=== PATIENT | female | born 1990 | race African-American/Black ===

== ENCOUNTER 2022-09-15 11:32 | Emergency (ER) | payer MEDICAID, OTHER ==
[~2022-09-15] VITALS: Ht 177.8 cm; Wt 80.0 kg
[2022-09-15 13:19] LABS: BASOPHILS % 1.5 % (0.0-2.0); EOSINOPHILS % 5.4 % (0.0-5.0); HEMATOCRIT. 32.8 % (36.0-48.0); HEMOGLOBIN. 10.9 g/dL (12.0-16.0); LYMPHOCYTES % 34.8 % (20.0-50.0); MEAN CORPUSCULAR HEMOGLOBIN 29.1 pg (28.0-32.0); MEAN CORPUSCULAR VOLUME 87.5 fL (81.0-99.0); MEAN PLATELET VOLUME 8.1 fl (7.4-10.4); MONOCYTES % 9.4 % (2.0-8.0); NEUTROPHILS % 48.9 % (40.0-76.0); PLATELET 178 x1000/uL (130-400); RED BLOOD CELL COUNT 3.75 mill/uL (4.2-5.4); RED CELL DISTRIBUTION WIDTH 15.7 % (11.6-14.6)
[2022-09-15 13:21] LABS: CHLORIDE 103 mEq/L (98-107)
[2022-09-15 13:35] LABS: HCG SCREEN NEGATIVE
[2022-09-15 14:00] VITALS: BP 119/79
== END 2022-09-15 14:25 | disposition home or self-care (01) ==
LOC: ER 11:32
DX: F10.20 Alcohol dependence, uncomplicated (principal); F12.10 Cannabis abuse, uncomplicated; D64.9 Anemia, unspecified; Y90.9 Presence of alcohol in blood, level not specified
CPT/HCPCS: 36415; 80053; 84703; 85025; 99283

== ENCOUNTER 2023-06-03 19:45 | Inpatient (IN) | payer MEDICAID, OTHER ==
[~2023-06-03] VITALS: Ht 175.3 cm; Wt 74.4 kg
[~2023-06-03 19:45] MED LIST: IBUP-2741 PO; TRAZ-251 PO
[2023-06-03] MEDS ORDERED: SODIUM CHLORIDE 0.9% 1,000 ML IV ONE ×2 (21:45→23:30)
[2023-06-03] MEDS ORDERED: FAMOTIDINE 20MG/2ML VIAL IV ONE (22:00)
[2023-06-03] MEDS ORDERED: ONDANSETRON HCL 4MG/2ML INJ IV ONE (22:00)
[2023-06-03] MEDS ORDERED: LORAZEPAM 2MG/ML INJ IV ONE ×2 (22:00→23:30)
[2023-06-03 22:04] LABS: BASOPHILS % 0.7 % (0.0-2.0); EOSINOPHILS % 0.2 % (0.0-5.0); HEMATOCRIT. 37.9 % (36.0-48.0); HEMOGLOBIN. 12.5 g/dL (12.0-16.0); LYMPHOCYTES % 14.1 % (20.0-50.0); MEAN CORPUSCULAR HEMOGLOBIN 30.1 pg (28.0-32.0); MEAN CORPUSCULAR HGB CONC 32.9 g/dL (31.0-37.0); MEAN CORPUSCULAR VOLUME 91.6 fL (81.0-99.0); MONOCYTES % 7.8 % (2.0-8.0); NEUTROPHILS % 77.2 % (40.0-76.0); PLATELET 158 x1000/uL (130-400); RED BLOOD CELL COUNT 4.14 mill/uL (4.2-5.4); RED CELL DISTRIBUTION WIDTH 14.1 % (11.6-14.6); WHITE BLOOD COUNT 5.3 x1000/uL (4.5-11.0)
[2023-06-03 22:21] LABS: ALANINE AMINOTRANSFERASE 69 IU/L (10-49); ASPARTATE AMINOTRANSFERASE 160 IU/L (<34); BILIRUBIN TOTAL 1.2 mg/dL (0.1-1.0); CALCIUM 9.8 mg/dL (8.7-10.4); CARBON DIOXIDE 24 mEq/L (21-32); CHLORIDE 97 mEq/L (98-107); CREATININE 0.8 mg/dL (0.6-1.0); GLUCOSE 82 mg/dL (70-105); POTASSIUM 4.3 mEq/L (3.5-5.1); SODIUM 138 mEq/L (136-145); UREA NITROGEN BLOOD 8 mg/dL (9-23)
[2023-06-03 22:25] LABS: HCG SCREEN NEGATIVE
[2023-06-03 22:30] LABS: ETHANOL BLOOD < 10 mg/dL (<10)
[2023-06-04 04:17] LABS: *AMPHETAMINES SCREEN URINE NEGATIVE (NEGATIVE); *BARBITURATES SCREEN URINE NEGATIVE (NEGATIVE); *BENZODIAZEPINES SCREEN URINE NEGATIVE (NEGATIVE); *COCAINE SCREEN URINE NEGATIVE (NEGATIVE); CANNABINOID URINE SCREEN PRESUMPTIVE POSITIVE (NEGATIVE); ECSTASY MDMA SCREEN URINE NEGATIVE (NEGATIVE); METHADONE URINE SCREEN Neg (NEGATIVE); OPIATES URINE SCREEN NEGATIVE (NEGATIVE); PHENCYCLIDINE URINE SCREEN NEGATIVE (NEGATIVE)
[2023-06-04 04:48] LABS: CLARITY URINE CLEAR (CLEAR); COLOR URINE YELLOW (YELLOW); GLUCOSE URINE NEGATIVE (NEGATIVE); PROTEIN URINE NEGATIVE (NEGATIVE); SPECIFIC GRAVITY URINE 1.026 (1.005-1.030)
[2023-06-04 04:49] LABS: KETONES URINE 4+ (NEGATIVE); LEUKOCYTE ESTERASE URINE NEGATIVE (NEGATIVE); NITRITE URINE NEGATIVE (NEGATIVE); OCCULT BLOOD URINE NEGATIVE (NEGATIVE)
[2023-06-04 12:00] VITALS: BP 139/82; PULSE 90; RESP 18; TEMP 99.5
[2023-06-04 12:06] VITALS: BP 139/82; PULSE 90; RESP 20; TEMP 99.5
[2023-06-04] MEDS ORDERED: MAGNESIUM/ALUMINUM HYDROXIDE/SIMETHICONE 30ML UDC PO PRN (12:15)
[2023-06-04] MEDS ORDERED: ONDANSETRON HCL 4MG/2ML INJ IV PRN (12:15)
[2023-06-04] MEDS ORDERED: CLONIDINE 0.1MG TABLET PO PRN (12:15)
[2023-06-04] MEDS ORDERED: DOCUSATE SODIUM 100MG CAPSULE PO PRN (12:15)
[2023-06-04] MEDS ORDERED: MVI, ADULT NO.1 10 ML, FOLIC ACID 1 MG, THIAMINE HCL 100 MG in SODIUM CHLORIDE 0.9% 1,0... IV SCH ×4 (13:00)
[2023-06-04] MEDS ORDERED: CHLORDIAZEPOXIDE 25MG CAPSULE PO PRN (13:00)
[2023-06-04] MEDS: PANTOPRAZOLE SODIUM 40 MG/VIAL IV SCH (14:04)
[2023-06-04 16:00] VITALS: BP 142/96; PULSE 93; RESP 15; TEMP 97
[2023-06-04 17:57] LABS: HEPATITIS B SURFACE ANTIGEN NEGATIVE (Negative); HEPATITIS C AB NON REACTIVE (Neg) (Negative)
[2023-06-04 20:00] VITALS: BP 140/100; PULSE 88; RESP 20; TEMP 98.2
[2023-06-05] VITALS: BP_SYST 140; BP_SYST 143; BP_DIAS 100; BP_DIAS 108; PULSE 80; PULSE 88; RESP 20; TEMP 97.7; TEMP 98.2
[2023-06-05] MEDS: LORAZEPAM 1MG TABLET PO PRN ×2 (00:29→13:34)
[2023-06-05 04:00] VITALS: BP 140/98; PULSE 76; RESP 20; TEMP 97.6
[2023-06-05 08:00] VITALS: BP 142/107; PULSE 81; RESP 18; TEMP 97.5
[2023-06-05] MEDS ORDERED: INFLUENZA VACCINE 05/PF 0.5 ML SYRINGE IM ONE (09:00)
[2023-06-05 09:35] LABS: BASOPHILS % 0.4 % (0.0-2.0); HEMATOCRIT. 38.4 % (36.0-48.0); HEMOGLOBIN. 12.3 g/dL (12.0-16.0); LYMPHOCYTES % 28.9 % (20.0-50.0); MEAN CORPUSCULAR HEMOGLOBIN 29.6 pg (28.0-32.0); MEAN CORPUSCULAR HGB CONC 32.1 g/dL (31.0-37.0); MEAN CORPUSCULAR VOLUME 92.5 fL (81.0-99.0); MEAN PLATELET VOLUME 9.8 fl (7.4-10.4); MONOCYTES % 10.8 % (2.0-8.0); NEUTROPHILS % 50.9 % (40.0-76.0); PLATELET 116 x1000/uL (130-400); RED BLOOD CELL COUNT 4.15 mill/uL (4.2-5.4); RED CELL DISTRIBUTION WIDTH 13.5 % (11.6-14.6); WHITE BLOOD COUNT 3.6 x1000/uL (4.5-11.0)
[2023-06-05] MEDS: FOLIC ACID 1MG TABLET PO SCH (09:46)
[2023-06-05] MEDS: THIAMINE HCL 100MG TABLET PO SCH (09:46)
[2023-06-05] MEDS: MULTIVITAMINS,THER W-MINERALS TABLET PO SCH (09:46)
[2023-06-05] MEDS: PANTOPRAZOLE SODIUM 40 MG/VIAL IV SCH (09:46)
[2023-06-05] MEDS: AMLODIPINE 5MG TABLET PO SCH (09:47)
[2023-06-05 10:08] LABS: ALANINE AMINOTRANSFERASE 44 IU/L (10-49); ALBUMIN 3.9 g/dL (3.2-4.8); ASPARTATE AMINOTRANSFERASE 85 IU/L (<34); BILIRUBIN TOTAL 0.8 mg/dL (0.1-1.0); CALCIUM 9.1 mg/dL (8.7-10.4); CARBON DIOXIDE 27 mEq/L (21-32); CHLORIDE 102 mEq/L (98-107); CHOLESTEROL 318 mg/dL (<200); CREATININE 0.6 mg/dL (0.6-1.0); GLUCOSE 79 mg/dL (70-105); LDL CHOLESTEROL 67 mg/dL (5-100); POTASSIUM 3.8 mEq/L (3.5-5.1); PROTEIN TOTAL 6.9 g/dL (6.0-8.3); SODIUM 134 mEq/L (136-145); T4 FREE 1.41 ng/dL (0.89-1.76); THYROID STIMULATING HORMONE 2.28 uIU/mL (0.55-4.78); TRIGLYCERIDE 59 mg/dL (0-150)
[2023-06-05 10:13] LABS: HDL CHOLESTEROL 199 mg/dL (>65); UREA NITROGEN BLOOD < 5 mg/dL (9-23)
[2023-06-05 12:00] VITALS: BP 122/80; PULSE 84; RESP 20; TEMP 98
[2023-06-05 16:00] VITALS: BP 126/72; PULSE 88; RESP 18; TEMP 97.9
[2023-06-05 20:00] VITALS: BP 127/97; PULSE 105; RESP 17; TEMP 99
[2023-06-06] VITALS: BP 120/81; PULSE 89; RESP 20; TEMP 96.2
[2023-06-06] MEDS: LORAZEPAM 1MG TABLET PO PRN ×3 (01:19→19:26)
[2023-06-06 04:00] VITALS: BP 129/79; PULSE 88; RESP 18; TEMP 98.1
[2023-06-06 06:48] LABS: HEMATOCRIT 38.7 % (36.0-48.0); HEMOGLOBIN 12.3 g/dL (12.0-16.0); MEAN CORPUSCULAR HEMOGLOBIN 29.8 pg (28.0-32.0); MEAN CORPUSCULAR HGB CONC 31.9 g/dL (31.0-37.0); MEAN CORPUSCULAR VOLUME 93.3 fL (81.0-99.0); PLATELET 108 x1000/uL (130-400); RED BLOOD CELL COUNT 4.15 mill/uL (4.2-5.4); RED CELL DISTRIBUTION WIDTH 13.7 % (11.6-14.6); WHITE BLOOD COUNT 5.9 x1000/uL (4.5-11.0)
[2023-06-06 06:51] LABS: CALCIUM 9.3 mg/dL (8.7-10.4); CARBON DIOXIDE 27 mEq/L (21-32); CHLORIDE 103 mEq/L (98-107); CREATININE 0.7 mg/dL (0.6-1.0); GLUCOSE 85 mg/dL (70-105); PHOSPHORUS 4.2 mg/dL (2.5-4.9); POTASSIUM 4.5 mEq/L (3.5-5.1); SODIUM 137 mEq/L (136-145); UREA NITROGEN BLOOD 8 mg/dL (9-23)
[2023-06-06 08:00] VITALS: BP 126/98; PULSE 87; RESP 20; TEMP 97.3
[2023-06-06] MEDS: MULTIVITAMINS,THER W-MINERALS TABLET PO SCH (08:53)
[2023-06-06] MEDS: THIAMINE HCL 100MG TABLET PO SCH (08:53)
[2023-06-06] MEDS: PANTOPRAZOLE SODIUM 40 MG/VIAL IV SCH (08:54)
[2023-06-06] MEDS: IBUPROFEN 600MG TABLET PO PRN ×2 (08:54→20:56)
[2023-06-06] MEDS: FOLIC ACID 1MG TABLET PO SCH (08:55)
[2023-06-06] MEDS: AMLODIPINE 5MG TABLET PO SCH (08:55)
[2023-06-06] MEDS ORDERED: MAGNESIUM 2 G PREMIX 50 ML IV NR (09:00)
[2023-06-06] MEDS ORDERED: CHLORDIAZEPOXIDE 10MG CAPSULE PO PRN (11:00)
[2023-06-06 12:00] VITALS: BP 115/68; PULSE 88; RESP 18; TEMP 97.6
[2023-06-06 16:00] VITALS: BP 128/65; PULSE 83; RESP 20; TEMP 97
[2023-06-06 20:00] VITALS: BP 117/84; PULSE 96; RESP 18; TEMP 98.8
[2023-06-07 04:00] VITALS: BP 134/98; PULSE 90; RESP 20; TEMP 99.5
[2023-06-07 08:00] VITALS: BP 147/84; PULSE 94; RESP 16; TEMP 97.8
[2023-06-07] MEDS: PANTOPRAZOLE SODIUM 40 MG/VIAL IV SCH (09:00)
[2023-06-07] MEDS: LORAZEPAM 1MG TABLET PO PRN (09:17)
[2023-06-07] MEDS ORDERED: FOLI-43 PO (09:18)
[2023-06-07] MEDS: MULTIVITAMINS,THER W-MINERALS TABLET PO SCH (09:18)
[2023-06-07] MEDS ORDERED: THIA100T72 PO (09:18)
[2023-06-07] MEDS: THIAMINE HCL 100MG TABLET PO SCH (09:18)
[2023-06-07] MEDS: FOLIC ACID 1MG TABLET PO SCH (09:19)
[2023-06-07] MEDS: AMLODIPINE 5MG TABLET PO SCH (09:19)
[2023-06-07 12:19] VITALS: BP 135/88; PULSE 91; TEMP 98; O2SAT 98
[2023-06-08] MEDS ORDERED: FAMOTIDINE 20MG/2ML VIAL IV SCH (09:00)
== END 2023-06-07 14:17 | disposition home or self-care (01) | DRG 58 ==
LOC: ER 19:45 → 5WST 23:20 → 7EST 06-04 10:26
PROVIDERS: ADMIT Internal Medicine; ATTEND Internal Medicine
DX: G25.2 Other specified forms of tremor (principal); F10.239 Alcohol dependence with withdrawal, unspecified; F12.10 Cannabis abuse, uncomplicated; F17.200 Nicotine dependence, unspecified, uncomplicated; F41.9 Anxiety disorder, unspecified; R74.01 Elevation of levels of liver transaminase levels; Z79.899 Other long term (current) drug therapy
CPT/HCPCS: 36415; 80048; 80053; 80061; 80305; 80320; 81003; 83735; 84100; 84439; 84443; 84481; 84703; 85025; 85027; 86705; 87340; 93970; 99285; C9113; J2060; J2405; J3411; J3475; J3490; J7030; G0480